=== PATIENT | female | born 1995 | race Caucasian/White ===

== ENCOUNTER 2018-10-03 00:46 | Emergency (ER) | payer OTHER ==
[~2018-10-03] VITALS: Ht 162.6 cm; Wt 72.6 kg
[~2018-10-03 00:46] MED LIST: BENZAMYCIN GE46.6 GM; CATAPRES0.2 MG PO; CELEXA 10 MG TA10 M1 PO; CENTRUM SILVER1 EAC4 PO; HYDROXYZINE HCL25 M1 PO; LEXAPRO20 MG PO; OXCARBAZEPINE300 M1 PO; STRESS B1 EAC1 PO
[2018-10-03 01:34] LABS: ABSOLUTE NEUTROPHILS 2.8 thou/uL (1.4-8.2); BASOPHILS 1.1 % (0.0-2.0); EOSINOPHILS 1.2 % (0.0-3.0); HEMATOCRIT 35.1 % (37.0-47.0); HEMOGLOBIN 12.2 gm/dL (12.0-15.0); LYMPHOCYTES 50.4 % (24.0-44.0); MCH 31.5 pg (26.0-34.0); MCHC 34.7 g/dL (28.0-37.0); MCV 90.7 fL (80.0-100.0); MONOCYTES 8.6 % (1.0-8.0); PLATELET COUNT 306 thou/uL (150-400); POLYS 38.7 % (36.0-66.0); RBC 3.88 mil/uL (4.20-5.00); RDW 13.4 % (10.5-14.5); WBC 7.3 thou/uL (4.0-11.0)
[2018-10-03 01:42] LABS: CALCIUM 8.7 mg/dL (8.5-10.1); CREATININE 0.6 mg/dL (0.6-1.0); POTASSIUM 3.2 mmol/L (3.5-5.1)
[2018-10-03 01:55] LABS: AMP/METHAMP Negative (Negative); BARBITURATES Negative (Negative); BENZODIAZEPINES POSITIVE (Negative); COCAINE POSITIVE (Negative); METHADONE Negative (Negative); OPIATES Negative (Negative); PCP Negative (Negative)
[2018-10-03 17:27] VITALS: BP 103/48
== END 2018-10-03 17:28 ==
LOC: ER 00:46
PROVIDERS: Emergency Medicine
DX: R45.851 Suicidal ideations (principal); F32.9 Major depressive disorder, single episode, unspecified; F41.9 Anxiety disorder, unspecified

== ENCOUNTER 2019-08-30 17:37 | Emergency (ER) | payer OTHER ==
[~2019-08-30] VITALS: Ht 167.6 cm; Wt 72.6 kg
[2019-08-30 18:45] LABS: URINE BILIRUBIN NEGATIVE (Negative); URINE BLOOD 2+ (Negative); URINE CLARITY CLEAR; URINE COLOR YELLOW; URINE GLUCOSE-RANDOM* NEGATIVE (Negative); URINE KETONES NEGATIVE (Negative); URINE LEUKOCYTES-REFLEX 2+ (Negative); URINE NITRITE-REFLEX NEGATIVE (Negative); URINE PROTEIN (DIPSTICK) NEGATIVE (Negative); URINE SPECIFIC GRAVITY <= 1.005 (1.005-1.035); URINE UROBILINOGEN 0.2 E.U./dl (0.2-1.0)
[2019-08-30 18:48] LABS: HEMATOCRIT 41.2 % (37.0-47.0); MCH 31.6 pg (26.0-34.0); MCHC 33.9 g/dL (28.0-37.0); MCV 93.4 fL (80.0-100.0); PLATELET COUNT 376 thou/uL (150-400); RBC 4.42 mil/uL (4.20-5.00); RDW 13.8 % (10.5-14.5); WBC 6.2 thou/uL (4.0-11.0)
[2019-08-30 18:54] LABS: CALCIUM 8.7 mg/dL (8.5-10.1); CREATININE 0.8 mg/dL (0.6-1.0); MAGNESIUM 1.7 mg/dL (1.8-2.4)
[2019-08-30 18:59] LABS: POTASSIUM 2.6 mmol/L (3.5-5.1)
[2019-08-30 19:02] LABS: SQUAMOUS >10 Many /LPF (0-3)
[2019-08-30 19:03] LABS: BACTERIA-REFLEX None Seen /HPF (None Seen); CASTS None Seen /LPF (None Seen); CRYSTALS None Seen /LPF (None Seen); URINE RBC 0-2 Rare /HPF (0-2); URINE WBC-REFLEX None Seen /HPF (0-5)
[2019-08-30 19:19] LABS: ABSOLUTE NEUTROPHILS 2.2 thou/uL (1.4-8.2); ANISOCYTOSIS 1+; ATYPICAL LYMPHS 1 %
[2019-08-30] MEDS ORDERED: PROTONIX40 M2 PO (19:22)
[2019-08-30 20:25] VITALS: BP 125/78
--- NOTE | 2019-09-02 12:33 | EKG ---
[facility] [place] [address] ELECTROCARDIOGRAM REPORT Name: BANDAR LAI Room #: DEP [facility]#: [id number] Admission: 08/30/19 Attend Phys: Discharge: 08/30/19 Date of : 89 Report #: [id number] THIS REPORT FOR: cc: [facility] - Clinic physician unknown [facility] - Clinic physician unknown Parth Morales MD [facility] ~ THIS REPORT FOR: //name// [facility] ED Test Date: 2019-08-30 Test Time: 18:00:45 Pat Name: BANDAR LAI Department: Room: Gender: F [place]: KF : 1995 Requested By: Khris Pena Order Number: [id number] MD: Parth Morales Measurements Intervals [place] Rate: 109 P: 46 MS: 121 QRS: 58 QRSD: 85 T: 17 QT: 334 QTc: 450 Interpretive Statements Sinus tachycardia Otherwise normal tracing Compared to ECG 04/15/2014 15:26:22 No significant change was found Electronically Signed On 08-31-2019 9:36:08 DRIP [employer]MPER by Parth Morales [email or web address] <ELECTRONICALLY SIGNED> By: Parth Morales MD, [facility] 08/31/19 0936 99 1800 Parth Morales MD, [facility] /EPI
== END 2019-08-30 20:26 | disposition home or self-care (01) ==
LOC: ER 17:37
PROVIDERS: Emergency Medicine
DX: K92.0 Hematemesis (principal); E87.6 Hypokalemia; E83.42 Hypomagnesemia; F41.9 Anxiety disorder, unspecified; F32.9 Major depressive disorder, single episode, unspecified

== ENCOUNTER 2021-03-05 01:03 | Emergency (ER) | payer OTHER ==
[~2021-03-05] VITALS: Ht 167.6 cm; Wt 68.0 kg
[~2021-03-05 01:03] MED LIST changes: +PROTONIX40 M2 PO
[2021-03-05 01:06] VITALS: BP 131/90
[2021-03-05] MEDS ORDERED: TIVICAY50 MG PO (05:17)
[2021-03-05] MEDS ORDERED: DOXYCYCLINE 10100 MG PO (05:17)
[2021-03-05] MEDS ORDERED: TRUVADA 200 MG1 EACH PO (05:17)
[2021-03-05 05:51] LABS: AMP/METHAMP Negative (Negative); BARBITURATES Negative (Negative); BENZODIAZEPINES POSITIVE (Negative); COCAINE Negative (Negative); METHADONE Negative (Negative); OPIATES Negative (Negative); PCP Negative (Negative)
[2021-03-07 17:07] LABS: HAV IgM AB (ANTI-HAV IgM) Negative (Negative); HEPATITIS B SURFACE AG Negative (Negative); HEPATITIS C VIRUS AB 0.2 (0.0-0.9); HIV ANTIBODY Non Reactive (Non Reactive)
== END 2021-03-05 05:30 | disposition home or self-care (01) ==
LOC: ER 01:03
PROVIDERS: Emergency Medicine
DX: T76.21XA Adult sexual abuse, suspected, initial encounter (principal); F41.9 Anxiety disorder, unspecified; F32.9 Major depressive disorder, single episode, unspecified; F10.10 Alcohol abuse, uncomplicated; F17.210 Nicotine dependence, cigarettes, uncomplicated; F12.90 Cannabis use, unspecified, uncomplicated; Z79.899 Other long term (current) drug therapy

== ENCOUNTER 2021-06-17 14:10 | Emergency (ER) | payer OTHER ==
[~2021-06-17] VITALS: Ht 167.6 cm; Wt 66.7 kg
[~2021-06-17 14:10] MED LIST changes: +DOXYCYCLINE 10100 MG PO; +TIVICAY50 MG PO; +TRUVADA 200 MG1 EACH PO
[2021-06-17 14:56] LABS: AMP/METHAMP Negative (Negative); BARBITURATES Negative (Negative); BENZODIAZEPINES POSITIVE (Negative); COCAINE Negative (Negative); METHADONE Negative (Negative); OPIATES Negative (Negative); PCP Negative (Negative)
[2021-06-17 15:12] LABS: ABSOLUTE NEUTROPHILS 1.8 thou/uL (1.4-8.2); BASOPHILS 2.5 % (0.0-2.0); EOSINOPHILS 0.8 % (0.0-3.0); HEMATOCRIT 34.1 % (37.0-47.0); HEMOGLOBIN 11.4 gm/dL (12.0-15.0); LYMPHOCYTES 49.8 % (24.0-44.0); MCH 32.9 pg (26.0-34.0); MCHC 33.3 g/dL (28.0-37.0); MCV 98.7 fL (80.0-100.0); MONOCYTES 13.1 % (1.0-8.0); PLATELET COUNT 299 thou/uL (150-400); POLYS 33.8 % (36.0-66.0); RBC 3.46 mil/uL (4.20-5.00); RDW 14.9 % (10.5-14.5); WBC 5.5 thou/uL (4.0-11.0)
[2021-06-17 15:25] LABS: ANION GAP 9 mmol/L (7-16); BUN 9 mg/dL (7-18); CALCIUM 8.6 mg/dL (8.5-10.1); CHLORIDE 110 mmol/L (98-107); CO2 27 mmol/L (21-32); CREATININE 0.7 mg/dL (0.6-1.0); GLUCOSE 87 mg/dL (74-106); POTASSIUM 3.7 mmol/L (3.5-5.1); SODIUM 146 mmol/L (136-145)
[2021-06-17 15:33] LABS: ALBUMIN 3.6 g/dL (3.4-5.0); DIRECT BILIRUBIN < 0.1 mg/dL (<0.1-0.2); LIPASE 375 U/L (73-393); SGOT 129 U/L (15-37); SGPT 103 U/L (14-59); TOTAL BILIRUBIN 0.2 mg/dL (0.2-1.0); TOTAL PROTEIN 7.2 g/dL (6.4-8.2)
[2021-06-17 16:39] LABS: URINE BILIRUBIN NEGATIVE (Negative); URINE BLOOD NEGATIVE (Negative); URINE CLARITY CLEAR; URINE COLOR YELLOW; URINE GLUCOSE-RANDOM* NEGATIVE (Negative); URINE KETONES NEGATIVE (Negative); URINE LEUKOCYTES-REFLEX NEGATIVE (Negative); URINE NITRITE-REFLEX NEGATIVE (Negative); URINE PROTEIN (DIPSTICK) NEGATIVE (Negative)
[2021-06-17 18:21] VITALS: BP 116/86
[2021-06-18] MEDS ORDERED: AZITHROMYCIN500 MG PO (14:04)
== END 2021-06-17 18:21 | disposition home or self-care (01) ==
LOC: ER 14:10
PROVIDERS: Emergency Medicine; Nurse Practitioner
DX: R10.32 Left lower quadrant pain (principal); R10.12 Left upper quadrant pain; R10.13 Epigastric pain; F41.9 Anxiety disorder, unspecified; F32.9 Major depressive disorder, single episode, unspecified; F17.200 Nicotine dependence, unspecified, uncomplicated; Z79.891 Long term (current) use of opiate analgesic; Z79.899 Other long term (current) drug therapy